=== PATIENT | male | born 1960 | race Caucasian/White ===

== ENCOUNTER 2019-05-16 10:22 | Emergency (ER) | payer OTHER ==
[~2019-05-16] VITALS: Ht 193 cm; Wt 113.4 kg
[2019-05-16] MEDS ORDERED: ACETAMINOPHEN ES 500 MG TABLET ONE (10:52)
[2019-05-16] MEDS ORDERED: IBUPROFEN 600 MG TABLET ONE (10:52)
--- NOTE | 2019-05-16 10:56 | NUR ---
Patient discharged to home in stable conditon. Written and verbal after care instructions given. Patient verbalizes understanding of instructions.pt walks in steady gait.
[2019-05-16] MEDS ORDERED: IBUPROFEN 600 MG TABLET PO ONE (11:00)
[2019-05-16] MEDS ORDERED: ACETAMINOPHEN ES 500 MG TABLET PO ONE (11:00)
== END 2019-05-16 10:57 | disposition home or self-care (01) ==
LOC: ER 10:22
DX: G44.209 Tension-type headache, unspecified, not intractable (principal); M62.838 Other muscle spasm; R03.0 Elevated blood-pressure reading, without diagnosis of hypertension
CPT/HCPCS: A4663; A9150